=== PATIENT | female | born 1970 | race Two or more races ===

== ENCOUNTER 2016-11-10 13:51 | Emergency (ER) | payer SELFPAY ==
[~2016-11-10] VITALS: Ht 152.4 cm; Wt 59.0 kg
[~2016-11-10 13:51] MED LIST: CARBAMAZEPINE200 M1 ORAL; CARBAMAZEPINE200 MG ORAL; DILANTIN100 MG ORAL; PHENYTOIN SODI100 MG ORAL; TEGRETOL XR200 MG ORAL; TEGRETOL200 MG PO; UNOBMED
[2016-11-10 14:49] VITALS: BP 104/57
[2016-11-10 14:51] LABS: BASOPHILS % (AUTO) 1.2 % (0.0-2.0); EOSINOPHILS % (AUTO) 0.1 % (0.0-3.0); LYMPHOCYTES % (AUTO) 17.9 % (20.0-45.0); MEAN CORPUSCULAR HEMOGLOBIN 26.4 PG (27.0-31.0); MEAN CORPUSCULAR HGB CONC 32.2 G/DL (32.0-36.0); MEAN CORPUSCULAR VOLUME 82 FL (80-99); MEAN PLATELET VOLUME 6.6 FL (6.5-10.1); MONOCYTES % (AUTO) 4.8 % (1.0-10.0); NEUTROPHILS % (AUTO) 76.1 % (45.0-75.0); PLATELET COUNT 319 K/UL (150-450); RED BLOOD COUNT 5.47 M/UL (4.20-5.40); RED CELL DISTRIBUTION WIDTH 13.2 % (11.6-14.8); WHITE BLOOD COUNT 8.6 K/UL (4.8-10.8)
[2016-11-10 15:14] LABS: ALANINE AMINOTRANSFERASE 17 U/L (3-33); ALBUMIN/GLOBULIN RATIO 1.3 (1.0-2.7); ALCOHOL < 10 mg/dL; ANION GAP 17 (5-15); ASPARTATE AMINO TRANSFERASE 25 U/L (5-40); CALCIUM 9.3 mg/dL (8.6-10.2); CARBON DIOXIDE 22 mEQ/L (20-30); CHLORIDE 100 mEQ/L (98-107); CREATININE 0.8 mg/dL (0.5-0.9); GLOMERULAR FILTRATION RATE > 60 mL/min (>60); HEMOLYSIS 0; POTASSIUM 3.6 mEQ/L (3.4-4.9); SODIUM 139 mEQ/L (135-145); TOTAL PROTEIN 8.4 g/dL (6.6-8.7)
[2016-11-10] MEDS ORDERED: KEPPRA500 M4 ORAL (15:29)
--- NOTE | 2016-11-10 15:31 | Emergency Room Report ---
History of Present Illness General Chief Complaint: Seizure Source: Patient, EMS Present Illness HPI 46YOF BIBEMS for ?seizure on street Atraumatic Was apparently combative with EMS and given IM versed Patient alert and oriented now at time of MD evaluation Denies compliance with dilantin Denies headache, pain, fever/chills, neck pain/stiffness, chest pain, SOB, abd pain History of ETOH abuse Allergies: Coded Allergies: ACETAMINOPHEN (Unverified Adverse Reaction, Intermediate, 11/08/15) Patient History Past Medical History: seizures Past Surgical History: none Pertinent Family History: none Social History: Reports: alcohol use, Denies: smoking, drug use Now: No Immunizations: UTD Reviewed Nursing Documentation: PMH: Agreed, PSxH: Agreed Nursing Documentation-PMH Hx Seizures: Yes Review of Systems All Other Systems: negative except mentioned in HPI Physical Exam Vital Signs Date Time Temp Pulse Resp B/P (MAP) Pulse Ox O2 Delivery O2 Flow Rate FiO2 11/10/16 13:44 112 14 120/68 98 11/10/16 14:49 97.8 11/10/16 14:50 Room Air Sp02 EP Interpretation: reviewed, normal General Appearance: normal inspection, well appearing, no apparent distress, alert, GCS 15, non-toxic Head: normocephalic, atraumatic Eyes: bilateral eye PERRL, bilateral eye EOMI ENT: normal ENT inspection, hearing grossly normal, normal voice Neck: normal inspection, full range of motion, supple, no bony tend Respiratory: normal inspection, lungs clear, normal breath sounds, no respiratory distress, no retraction, no wheezing Cardiovascular #1: regular rate, rhythm, no edema Gastrointestinal: normal inspection, normal bowel sounds, non tender, soft, no guarding, no hernia Genitourinary: no CVA tenderness Musculoskeletal: normal inspection, back normal, normal range of motion, Lakshmi' s Sign negative Neurologic: normal inspection, alert, oriented x3, responsive, blower feeder dyed raw stock III-XII nml as tested, motor strength/tone normal, speech normal Psychiatric: normal inspection, judgement/insight normal, mood/affect normal Skin: normal inspection, normal color, no rash Medical Decision Making Diagnostic Impression: Primary Impression: Seizure ER Course Alleged witnessed seizure on street Labwork otherwise unremarkable. ETOH level 0. ?ETOH withdrawal seizure H&H stable. No leuks. No metabolic abnormalities Multiple visits here for same - history of non-compliance on Dilatin Review of EMR shows ALWAYS sub-therapuetic/zero levels of dilantin I am questioning the utility of using dilantin this patient given chronic non- compliance and difficult to monitor she did not have additional seizure in the ED after EMS-given versed Will load with 1500mg Keppra in ED Rx Keppra 500mg BID to start PMD followup Advised to refrain from heavy ETOH Last Vital Signs Date Time Temp Pulse Resp B/P (MAP) Pulse Ox O2 Delivery O2 Flow Rate FiO2 11/10/16 14:50 81 14 Room Air 11/10/16 14:49 97.8 104/57 98 Status: improved Disposition: HOME, SELF-CARE Condition: Improved Scripts Levetiracetam (KEPPRA) 500 Mg Tablet 500 MG ORAL EVERY 12 HOURS for 30 Days, #60 TAB 0 Refills Prov: KANDIS QUIROGA M.D. 11/10/16 Referrals: NOT CHOSEN IPA/,REFERRING (PCP) Patient Instructions: Seizure, Adult KANDIS QUIROGA M.D. Nov 10, 2016 15:31
[2016-11-10 17:02] VITALS: BP 105/54
[2016-11-10 17:03] VITALS: BP 105/54
== END 2016-11-10 17:20 | disposition home or self-care (01) ==
LOC: EDBD 13:51 → EMR 14:19
DX: G40.909 Epilepsy, unspecified, not intractable, without status epilepticus (principal); Z91.14 Patient's other noncompliance with medication regimen; Z88.6 Allergy status to analgesic agent
CPT/HCPCS: 36415; 80053; 80185; 80299; 82550; 85025; 99283; G0480; 80329